=== PATIENT | male | born 1980 | race Caucasian/White ===

== ENCOUNTER 2017-08-25 19:49 | Emergency (ER) | payer OTHER ==
[2017-08-25 19:53] VITALS: BP 160/87; TEMP 98.4
[2017-08-25 20:52] LABS: CALCIUM 8.4 mg/dL (8.4-10.2); CREATININE, serum 2.65 mg/dL (0.66-1.25); POTASSIUM 4.7 mmol/L (3.4-5.0)
[2017-08-25] MEDS ORDERED: COREG 25MG25 MG/TAB PO (21:06)
[2017-08-25] MEDS ORDERED: NORVASC 10MG10 MG PO (21:06)
[2017-08-25 21:25] VITALS: PULSE 67
== END 2017-08-25 21:25 | disposition home or self-care (01) ==
LOC: COL.ER 19:49
PROVIDERS: Emergency Medicine
DX: I10 Essential (primary) hypertension (principal); Z94.0 Kidney transplant status

== ENCOUNTER 2017-09-08 19:17 | Emergency (ER) | payer OTHER ==
[~2017-09-08 19:17] MED LIST: COREG 25MG25 MG/TAB PO; NORVASC 10MG10 MG PO
[2017-09-08 19:24] VITALS: BP 130/76; TEMP 97
[2017-09-08 20:04] LABS: BASO % 0.6 % (0.0-2.0); EOS # 0.1 (0.0-0.7); EOS % 1.6 % (0-4.0); GRAN % 59.9 % (42.2-75.2); HEMOGLOBIN 12.4 g/dl (13.5-18.0); LYMPH # 1.6 (1.2-3.4); LYMPH % 30.6 % (20.0-51.0); MEAN CELL VOLUME 90 fl (80.0-100.0); MEAN CORPUSCULAR HEMOGLOBIN 31 pg (27.0-31.0); MEAN CORPUSCULAR HGB CONC 35 g/dl (33.0-37.0); MEAN PLATELET VOLUME 10.2 fl (7.4-10.4); MONO # 0.4 (0.1-0.6); MONO % 7.1 % (1.7-9.3); PLATELET COUNT 185 K/mm3 (130-400); RED BLOOD COUNT 3.97 M/mm3 (4.20-5.60); REDCELL DISTRIBUTION WIDTH-CV 11.9 % (11.5-14.5)
[2017-09-08 20:05] LABS: HEMATOCRIT 35.8 % (42.0-52.0)
[2017-09-08 20:13] LABS: ALBUMIN 4.2 gm/dL (3.5-5.0); BILIRUBIN,TOTAL 0.5 mg/dL (0.0-1.0); CALCIUM 8.9 mg/dL (8.4-10.2); CREATININE, serum 2.85 mg/dL (0.66-1.25); POTASSIUM 4.7 mmol/L (3.4-5.0); TOTAL PROTEIN 8.2 gm/dL (6.4-8.2)
[2017-09-08 20:41] LABS: COLLECTION METHOD CLEAN CATCH
[2017-09-08 20:46] LABS: PH 7 (5-8); SQUAMOUS EPITHELIAL None Seen /hpf; URINE APPEARANCE Clear; URINE BACTERIA None Seen /hpf; URINE BILIRUBIN Negative (NEGATIVE); URINE BLOOD Negative (NEGATIVE); URINE COLOR Yellow; URINE GLUCOSE Negative (NEGATIVE); URINE KETONE Negative (NEGATIVE); URINE LEUKOCYTE ESTERASE Negative (NEGATIVE); URINE NITRATE Negative (NEGATIVE); URINE PROTEIN(semi-quant) Negative (NEGATIVE); URINE RBC 0-2 /hpf; URINE UROBILINOGEN Negative (NEGATIVE)
[2017-09-08] MEDS ORDERED: PREDNISONE 2.52.5 MG PO (22:40)
[2017-09-08] MEDS ORDERED: LIPITOR 10MG10 MG PO (22:40)
[2017-09-08 22:42] VITALS: PULSE 70
== END 2017-09-08 22:43 | disposition home or self-care (01) ==
LOC: COL.ER 19:17
PROVIDERS: Emergency Medicine
DX: N18.9 Chronic kidney disease, unspecified (principal); Z94.0 Kidney transplant status
CPT/HCPCS: J7030

== ENCOUNTER → 2017-09-10 | Outpatient (CLI) | payer OTHER ==
[~2017-09-10] MED LIST changes: +LIPITOR 10MG10 MG PO; +PREDNISONE 2.52.5 MG PO
== END ==
LOC: COL.RAD 12:43
DX: N26.1 Atrophy of kidney (terminal) (principal); I77.89 Other specified disorders of arteries and arterioles; N32.89 Other specified disorders of bladder; Z94.0 Kidney transplant status

== ENCOUNTER 2017-09-26 12:07 | Emergency (ER) | payer OTHER ==
[~2017-09-26] VITALS: Ht 167.6 cm; Wt 73.6 kg
[2017-09-26 12:16] VITALS: BP 139/87; TEMP 98.3
[2017-09-26] MEDS ORDERED: PROGRAF 1MG1 MG PO (12:57)
[2017-09-26] MEDS ORDERED: PROGRAF 0.5MG0.5 MG PO (12:57)
[2017-09-26] MEDS ORDERED: COREG 25MG25 MG/TAB PO (12:58)
[2017-09-26 13:36] LABS: BASO % 0.6 % (0.0-2.0); EOS # 0.1 (0.0-0.7); EOS % 2.1 % (0-4.0); GRAN # 3.1 (1.4-6.5); GRAN % 65.9 % (42.2-75.2); HEMATOCRIT 40.1 % (42.0-52.0); HEMOGLOBIN 13.7 g/dl (13.5-18.0); LYMPH # 1.1 (1.2-3.4); LYMPH % 23.8 % (20.0-51.0); MEAN CELL VOLUME 91 fl (80.0-100.0); MEAN CORPUSCULAR HEMOGLOBIN 31 pg (27.0-31.0); MEAN CORPUSCULAR HGB CONC 34 g/dl (33.0-37.0); MEAN PLATELET VOLUME 9.5 fl (7.4-10.4); MONO # 0.4 (0.1-0.6); MONO % 7.4 % (1.7-9.3); PLATELET COUNT 185 K/mm3 (130-400); REDCELL DISTRIBUTION WIDTH-CV 11.8 % (11.5-14.5)
[2017-09-26 13:49] LABS: ALBUMIN 4.6 gm/dL (3.5-5.0); CALCIUM 9.5 mg/dL (8.4-10.2); CREATININE, serum 2.92 mg/dL (0.66-1.25); POTASSIUM 4.2 mmol/L (3.4-5.0); TOTAL PROTEIN 9.2 gm/dL (6.4-8.2)
[2017-09-26 13:52] LABS: C-REACTIVE PROTEIN 0.5 mg/dL (0.0-0.9)
[2017-09-26 14:17] LABS: THYROID STIMULATING HORMONE 3.16 uIU/mL (0.465-4.680)
[2017-09-26 15:01] VITALS: PULSE 75
== END 2017-09-26 15:02 | disposition home or self-care (01) ==
LOC: COL.ER 12:07
PROVIDERS: Nurse Practitioner
DX: R42 Dizziness and giddiness (principal); I10 Essential (primary) hypertension